=== PATIENT | female | born 1950 | race Caucasian/White ===

== ENCOUNTER 2022-05-07 16:27 | Emergency (ER) | payer MEDICARE, SELFPAY ==
--- NOTE | ~2022-05-07 | XR_ITS ---
XR ankle LT min 3V 05/07/2022 16:53 Indication: Left ankle pain and swelling Procedure: 4 views left ankle Comparison: No prior studies for comparison. Findings: There is an oblique mildly displaced distal fibular fracture. No significant angulation. Th ere is moderate lateral soft tissue swelling. There is corticated ossific density adjacent to the med ial malleolus, likely related to remote trauma. There are degenerative calcaneal enthesophytes. 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 Impression: 1: Acute mildly displaced oblique distal fibular fracture with adjacent soft tissue swelling. Reviewed, dictated and finalized at location A. Impression: 1: Acute mildly displaced oblique distal fibular fracture with adjacent soft ti ssue swelling.
--- NOTE | 2022-05-07 16:28 | ED.LOWEXIN ---
HPI - Extremity Injury (Lower) General Chief Complaint: Extremity Injury, Lower Stated Complaint: Left Ankle Injury Time Seen by Provider: 05/07/22 16:28 Source: patient Mode of arrival: ambulatory Limitations: no limitations History of Present Illness HPI Narrative: Ms. Green is a 71-year-old female patient presenting to the clinic today with complaints of left ankle injury/pain. She reports that she slipped and fell 3 to 4 days ago and injured her left ankle. She reports that she has not taken anything for pain. Currently rates her pain a 10 out of 10. States that she has pain to the left ankle that is shooting up her left leg. Has noted swelling and bruising to the left lateral ankle and foot. Pain is worse with ambulation Related Data Home Medications Medication Instructions Recorded Confirmed atorvastatin 20 mg tablet 20 mg PO DAILY 05/07/22 05/07/22 clonazepam 0.5 mg tablet 0.5 mg PO BID 05/07/22 05/07/22 clopidogrel 75 mg tablet 75 mg PO DAILY 05/07/22 05/07/22 diltiazem HCl 240 mg 240 mg PO BID 05/07/22 05/07/22 capsule,extended release 24 hr lamotrigine 100 mg tablet 100 mg PO BID 05/07/22 05/07/22 levothyroxine 125 mcg tablet 125 mcg PO DAILY 05/07/22 05/07/22 losartan 50 mg tablet 50 mg PO DAILY 05/07/22 05/07/22 nitroglycerin 0.4 mg sublingual 0.4 mg sublingual PRN PRN Chest 05/07/22 05/07/22 tablet Pain nortriptyline 25 mg capsule 25 mg PO DAILY 05/07/22 05/07/22 Allergies Allergy/AdvReac Type Severity Reaction Status Date / Time No Known Allergies Allergy Verified 05/07/22 16:55 Review of Systems Review of Systems: Pertinent positives per HPI. Patient denies any fever, chills, rash, headache, visual changes, dizziness, cough, runny nose, sore throat, shortness of breath, chest pain, palpitations, nausea, vomiting, diarrhea, constipation, abdominal pain, or any urinary issues. [facility] Family History Family History Sibling Family history of heart disease in male family member before age 55 Social History Social History Smoking status: Never smoker Alcohol intake: current Comments At the time of my signature, I reviewed and agree with the nursing past medical, surgical, social, and family history. There is no relevant family history pertinent to the patient complaint. Exam Narrative: General: Well-developed, well nourished, in no apparent distress Head: Normocephalic, atraumatic. Cardio: Regular rate and rhythm, s1 and s2 normal, no murmur appreciated. Resp: Clear to auscultation bilaterally, no rhonchi, rales, wheezing or rubs. Musculoskeletal: No deformity, swelling to the lateral left ankle, tender to palpation over the lateral malleolus and distal fibula, range of motion limited due to pain, muscle strength strong and equal, peripheral pulse strong, no cyanosis, normal gait and station Course Course Emergency Course: Portions of this record may have been created with voice recognition software. Level of Care: Express Care Visit Vital Signs Vital signs: Vital signs reviewed MDM - Extremity Injury (Lower) MDM Narrative Medical decision making narrative: At the time of visit patient is resting comfortably on the exam table. X-ray shows a closed distal fibular fracture of the left ankle. OCL splint applied and discussed supportive measures with the patient. 1 g of Tylenol was given in the clinic for pain. Referral to orthopedic was given to the patient and she voiced understanding of discharge instructions and agrees to the treatment plan. Differential Diagnosis Differential diagnosis: Likely ankle sprain and strain and ankle fracture Imaging Data Attestation: I personally reviewed and interpreted this imaging study as follows: My impression: Closed left distal fibular fracture Radiologist's impression: Close Ankle X-Ray (Signed) Hao Eason -
[2022-05-07 16:38] VITALS: BP 111/60; PULSE 76; RESP 16; TEMP 36.5; O2SAT 100
[2022-05-07 16:56] VITALS: BP 111/60; PULSE 76; RESP 16; TEMP 36.5; O2SAT 100
[2022-05-07] MEDS: ACETAMINOPHEN 500 MG TABLET 1000 MG PO (17:10)
== END 2022-05-07 17:33 | disposition home or self-care (01) ==
PROVIDERS: Emergency Provider Nurse Practitioner Family
DX: S82.832A Other fracture of upper and lower end of left fibula, initial encounter for closed fracture (principal); W01.0XXA Fall on same level from slipping, tripping and stumbling without subsequent striking against object, initial encounter; Z86.73 Personal history of transient ischemic attack (TIA), and cerebral infarction without residual deficits; E78.00 Pure hypercholesterolemia, unspecified; I10 Essential (primary) hypertension; E03.9 Hypothyroidism, unspecified; F41.9 Anxiety disorder, unspecified; F32.A Depression, unspecified
CPT/HCPCS: 29515; 73610; 99204; A9270; G0463